=== PATIENT | female | born 1930 | race Caucasian/White ===

== ENCOUNTER 2017-09-29 14:23 | Emergency (ER) | payer MEDICARE ==
[~2017-09-29] VITALS: Ht 167.6 cm; Wt 65.8 kg
--- NOTE | 2017-09-29 14:40 | NUR ---
BIB SON, C/O LEFT ELBOW PAIN S/P FALL WHILE CLEANING THE BATHROOM, DENIES LOC, NAD NOTED, VSS, RESP EVEN AND UNLABORED. AT FOR BRIAN.
[2017-09-29] MEDS ORDERED: ACETAMINOPHEN ES 500 MG TABLET ONE (14:49)
[2017-09-29] MEDS ORDERED: ACETAMINOPHEN ES 500 MG TABLET PO ONE (15:00)
[2017-09-29 16:45] VITALS: BP 124/80
--- NOTE | 2017-09-29 16:46 | NUR ---
Patient discharged to home in stable condition. Written and verbal after care instructions given. Patient verbalizes understanding of instruction.
== END 2017-09-29 17:02 | disposition home or self-care (01) ==
LOC: ER 14:25
DX: S42.401A Unspecified fracture of lower end of right humerus, initial encounter for closed fracture (principal); S73.101A Unspecified sprain of right hip, initial encounter; S09.90XA Unspecified injury of head, initial encounter; I10 Essential (primary) hypertension; E78.00 Pure hypercholesterolemia, unspecified; W18.39XA Other fall on same level, initial encounter; Y93.89 Activity, other specified; Y92.091 Bathroom in other non-institutional residence as the place of occurrence of the external cause; Y99.8 Other external cause status
CPT/HCPCS: 29105; 70450; 73080; 99284; A4606; Z7610